=== PATIENT | male | born 1945 | race Hispanic/Latino ===

== ENCOUNTER 2018-05-17 14:09 | Inpatient (IN) | payer OTHER ==
[2018-05-17 17:52] VITALS: BMI 35.5
[2018-05-17] MEDS ORDERED: Tuberculin 5 Units/0.1 ml Inj ID ONE (17:56)
[2018-05-17] MEDS ORDERED: Alum-Mag Hydrox-Simethicone Susp (30 mL) PO PRN (18:11)
[2018-05-17 19:39] VITALS: RESP 20
[2018-05-17] MEDS: Oxycodone/Acetaminophen 5/325 mg Tab PO PRN (21:17)
[2018-05-17] MEDS: Insulin Regular 100 units/ml SC SCH (21:18)
[2018-05-18] MEDS: Oxycodone/Acetaminophen 5/325 mg Tab PO PRN ×4 (05:56→20:54)
[2018-05-18 06:02] LABS: HEMOGLOBIN 12.4 g/dL (12.0-18.0); MEAN CELL VOLUME 90.2 fl (80.0-94.0); MEAN CORPUSCULAR HEMOGLOBIN 30.4 pg (27.0-31.0); MEAN CORPUSCULAR HGB CONC 33.7 g/dL (33.0-37.0); RBC 4.08 Mil/uL (4.40-5.90); RED CELL DISTRIBUTION WIDTH 14.2 % (11.5-14.5); WHITE BLOOD COUNT 7.9 K/uL (4.8-10.8)
[2018-05-18 06:22] LABS: ALBUMIN 3.4 g/dL (3.5-5.0); ALT/SGPT 20 U/L (21-72); AST/SGOT 24 U/L (17-59); BLOOD UREA NITROGEN 17 mg/dl (9-20); CALCIUM 8.9 mg/dL (8.4-10.2); GFR AFRICAN-AMERICAN > 60; GFR NON-AFRICAN AMERICAN 50
[2018-05-18] MEDS: Insulin Regular 100 units/ml SC SCH ×4 (07:58→21:36)
[2018-05-18] MEDS: Pantoprazole 40 mg EC Tab PO SCH (08:37)
[2018-05-18] MEDS ORDERED: Povidone Iodine Topical 10% Sol TOP ONE (10:52)
[2018-05-18] MEDS: Povidone Iodine Topical 10% Sol TOP SCH (12:14)
--- NOTE | 2018-05-18 14:05 | CP.PCM.CON ---
History of Present Illness - History of Present Illness History of Present Illness: Dr Tinajero PMR consultation on James Hua, born 1945, who has been admitted to [facility] TCU following a right laproscopic nephro-uretectomy post op stable. + right ureteral tumor with hydronephrosis pre-op doing better and ambulating without AD in therapies denies significant pain at this point Review of Systems - Constitutional Constitutional: absent: Chills - EENT Eyes: absent: Change in Vision Ears: absent: Ear Pain Nose/Mouth/Throat: absent: Nasal Congestion - Cardiovascular Cardiovascular: absent: Chest Pain - Respiratory Respiratory: absent: Dyspnea - Gastrointestinal Gastrointestinal: absent: Belching Past Patient History - Past Medical History & Family History Past Medical History?: Yes - Past Social History Smoking Status: Former Smoker - CARDIAC Hx Cardiac Disorders: Yes Hx Hypercholesterolemia: Yes Hx Hypertension: Yes - ENDOCRINE/METABOLIC Hx Diabetes Mellitus Type 2: Yes - HEMATOLOGICAL/ONCOLOGICAL Hx Blood Disorders: Yes Hx Cancer: Yes (bladder x 1o years) Hx Chemotherapy: Yes (into bladder x 10 years) - MUSCULOSKELETAL/RHEUMATOLOGICAL Hx Musculoskeletal Disorders: Yes Hx Falls: No Hx Osteoarthritis: Yes - GENITOURINARY/GYNECOLOGICAL Hx Genitourinary Disorders: Yes Hx Bladder Cancer: Yes - PSYCHIATRIC Hx Substance Use: No - SURGICAL HISTORY Hx Surgeries: Yes Other/Comment: several cystoscopies bx and fulg of bladder - ANESTHESIA Hx Anesthesia: Yes Hx Anesthesia Reactions: No Hx Malignant Hyperthermia: No Meds Allergies/Adverse Reactions: Allergies Allergy/AdvReac Type Severity Reaction Status Date / Time BCG (Bacillus Allergy Intermediate SWELLING Verified 05/17/18 14:20 Calmette-Monae) vacc - Medications Medications: Current Medications Al Hydrox/Mg Hydrox/Simethicone (Maalox Plus 30 Ml) 30 ml PO Q8H PRN PRN Reason: Indigestion / Heartburn Docusate Sodium (Colace) 100 mg PO TID [facility] Last Admin: 05/18/18 12:13 Dose: 100 mg Heparin Sodium (Porcine) (Heparin) 5,000 units SC Q12 MATIAS PRN Reason: Protocol Last Admin: 05/18/18 09:34 Dose: 5,000 units Insulin Human Regular (Humulin R) 0 units SC ACHS [facility]IAS PRN Reason: Protocol Last Admin: 05/18/18 11:24 Dose: Not Given Lactulose (Enulose) 20 gm PO HS PRN PRN Reason: Constipation Oxycodone/Acetaminophen (Percocet 5/325 Mg Tab) 1 tab PO Q4H PRN PRN Reason: Pain, severe (8-10) Stop: 05/20/18 18:12 Last Admin: 05/18/18 12:49 Dose: 1 tab Pantoprazole Sodium (Protonix Ec Tab) 40 mg PO DAILY [facility] Last Admin: 05/18/18 08:37 Dose: 40 mg Povidone Iodine (Betadine 10% Topical Soln) 1 ml TOP DAILY [facility] Last Admin: 05/18/18 12:14 Dose: 1 ml Results - Vital Signs Recent Vital Signs: Last Vital Signs Temp 97.7 F 05/18/18 08:33 Pulse 78 05/18/18 09:54 Resp 20 05/18/18 08:33 BP 122/60 05/18/18 08:33 Pulse Ox 94 L 05/18/18 09:54 - Labs Result Diagrams: 05/18/18 05:30 05/18/18 05:30 Labs: Laboratory Results - last 24 hr 05/17/18 05/18/18 05/18/18 21:00 05:27 05:30 WBC 7.9 RBC 4.08 L Hgb 12.4 Hct 36.8 MCV 90.2 MCH 30.4 MCHC 33.7 RDW 14.2 Plt Count 169 APTT Sodium Potassium Chloride Carbon Dioxide Anion Gap BUN Creatinine Est GFR ( Amer) Est GFR (Non-Af Amer) POC Glucose (mg/dL) 135 H 130 H Random Glucose Calcium Total Bilirubin AST ALT Alkaline Phosphatase Total Protein Albumin Globulin Albumin/Globulin Ratio 05/18/18 05/18/18 05/18/18 05:30 09:55 10:43 WBC RBC Hgb Hct MCV MCH MCHC RDW Plt Count APTT 29.2 Sodium 138 Potassium 4.5 Chloride 102 Carbon Dioxide 29 Anion Gap 12 BUN 17 Creatinine 1.4 Est GFR ( Amer) > 60 Est GFR (Non-Af Amer) 50 POC Glucose (mg/dL) 122 H Random Glucose 129 H Calcium 8.9 Total Bilirubin 0.8 AST 24 ALT 20 L Alkaline Phosphatase 63 Total Protein 6.6 Albumin 3.4 L Globulin 3.2 Albumin/Globulin Ratio 1.0 Assessment & Plan - Assessment and Plan (Free Text) Assessment: PT/OT to continue to help increase functional independence Pain: controlled Vascular: no evidence of DVT GI: + constipation, will add bowel regimen Patient continues to be an excellent TCU rehabilitation candidate and will have continued focused PT, OT and recreational therapy to help facilitate a safe and appropriate d/c plan
--- NOTE | 2018-05-18 20:19 | CP.PCM.HP ---
History of Present Illness - History of Present Illness History of Present Illness: pt is seen and examined, H&P is dictated for wil rivera #[id number] Present on Admission - Present on Admission Any Indicators Present on Admission: No History of DVT/PE: No History of Uncontrolled Diabetes: No Urinary Catheter: Yes Decubitus Ulcer Present: No Past Patient History - Past Medical History & Family History Past Medical History?: Yes - Past Social History Smoking Status: Former Smoker - CARDIAC Hx Cardiac Disorders: Yes Hx Hypercholesterolemia: Yes Hx Hypertension: Yes - ENDOCRINE/METABOLIC Hx Diabetes Mellitus Type 2: Yes - HEMATOLOGICAL/ONCOLOGICAL Hx Blood Disorders: Yes Hx Cancer: Yes (bladder x 1o years) Hx Chemotherapy: Yes (into bladder x 10 years) - MUSCULOSKELETAL/RHEUMATOLOGICAL Hx Musculoskeletal Disorders: Yes Hx Falls: No Hx Osteoarthritis: Yes - GENITOURINARY/GYNECOLOGICAL Hx Genitourinary Disorders: Yes Hx Bladder Cancer: Yes - PSYCHIATRIC Hx Substance Use: No - SURGICAL HISTORY Hx Surgeries: Yes Other/Comment: several cystoscopies bx and fulg of bladder - ANESTHESIA Hx Anesthesia: Yes Hx Anesthesia Reactions: No Hx Malignant Hyperthermia: No Meds Allergies/Adverse Reactions: Allergies Allergy/AdvReac Type Severity Reaction Status Date / Time BCG (Bacillus Allergy Intermediate SWELLING Verified 05/17/18 14:20 Calmette-Monae) vacc Results - Vital Signs Recent Vital Signs: Last Vital Signs Temp 98.2 F 05/18/18 19:41 Pulse 72 05/18/18 19:41 Resp 20 05/18/18 19:41 BP 111/62 05/18/18 19:41 Pulse Ox 95 05/18/18 19:41 - Labs Result Diagrams: 05/18/18 05:30 05/18/18 05:30 Labs: Laboratory Results - last 24 hr 05/17/18 05/18/18 05/18/18 21:00 05:27 05:30 WBC 7.9 RBC 4.08 L Hgb 12.4 Hct 36.8 MCV 90.2 MCH 30.4 MCHC 33.7 RDW 14.2 Plt Count 169 APTT Sodium Potassium Chloride Carbon Dioxide Anion Gap BUN Creatinine Est GFR ( Amer) Est GFR (Non-Af Amer) POC Glucose (mg/dL) 135 H 130 H Random Glucose Calcium Total Bilirubin AST ALT Alkaline Phosphatase Total Protein Albumin Globulin Albumin/Globulin Ratio 05/18/18 05/18/1805/18/18 05:30 09:55 10:43 WBC RBC Hgb Hct MCV MCH MCHC RDW Plt Count APTT 29.2 Sodium 138 Potassium 4.5 Chloride 102 Carbon Dioxide 29 Anion Gap 12 BUN 17 Creatinine 1.4 Est GFR ( Amer) > 60 Est GFR (Non-Af Amer) 50 POC Glucose (mg/dL) 122 H Random Glucose 129 H Calcium 8.9 Total Bilirubin 0.8 AST 24 ALT 20 L Alkaline Phosphatase 63 Total Protein 6.6 Albumin 3.4 L Globulin 3.2 Albumin/Globulin Ratio 1.0 05/18/18 16:19 WBC RBC Hgb Hct MCV MCH MCHC RDW Plt Count APTT Sodium Potassium Chloride Carbon Dioxide Anion Gap BUN Creatinine Est GFR ( Amer) Est GFR (Non-Af Amer) POC Glucose (mg/dL) 127 H Random Glucose Calcium Total Bilirubin AST ALT Alkaline Phosphatase Total Protein Albumin Globulin Albumin/Globulin Ratio
[2018-05-18] MEDS: Docusate-Senna 50 mg-8.6 mg Tab PO SCH (20:59)
[2018-05-19] MEDS: Oxycodone/Acetaminophen 5/325 mg Tab PO PRN ×5 (02:54→22:03)
[2018-05-19] MEDS: Insulin Regular 100 units/ml SC SCH ×4 (06:35→22:00)
[2018-05-19] MEDS: Povidone Iodine Topical 10% Sol TOP SCH (08:09)
[2018-05-19] MEDS: Pantoprazole 40 mg EC Tab PO SCH (08:10)
--- NOTE | 2018-05-19 09:23 | HP ---
LOCATION: The patient is located in room 705, bed 1. HISTORY OF PRESENT ILLNESS: The patient is seen and examined for Dr. Cheri Watson. Mr. Hua is a 72-year-old elderly male with the past medical history significant for longstanding hypertension, diabetes, hyperlipidemia, bladder CA, status post surgery in 2003, has been in remission until 2017 when he has recurrence of bladder tumor and cauterized twice but on recent cystoscopy found to have lesion in the right ureter, and the patient is scheduled for nephroureterectomy on 05/14/2018. The patient underwent robotic laparoscopic right nephroureterectomy, and the patient was subsequently transferred from [facility] to Transitional Care Unit for rehab. The patient is resting comfortably. The patient is out of bed to chair today. He still complains of mild abdominal discomfort when he moves and also complains of constipation. Denies any chest pain or palpitation. Denies any fever or cough. Denies any nausea, vomiting or diarrhea. The patient does complain mild swelling in both lower extremities. Not in distress. PAST MEDICAL HISTORY: Significant for hyperlipidemia, hypertension, diabetes, bladder CA. PAST SURGICAL HISTORY: Status post bladder tumor resection in 2003 and status post treatment with BCG and multiple cystoscopies. FAMILY HISTORY: Nothing contributory to the present illness. SOCIAL HISTORY: He denies any alcohol, denies any smoking at present time. He was a former smoker, quit more than 20 years ago. Denies drug abuse. PERSONAL HISTORY: He is single. Having two children. ALLERGIES: HE IS ALLERGIC TO BCG. MEDICATIONS: His current medications include as follows. Betadine topical, Colace 100 mg p.o. t.i.d., lactulose 20 gm p.o. at bedtime, Fleet enema p.r.n., subcutaneous heparin 5000 every 12 hours, Humulin R for sliding scale, Maalox 30 mL p.o. every 8 hours, Percocet 1 tablet p.o. every 4 hours, Protonix 40 mg p.o. daily, Senokot mg and 8.6 mg one tablet p.o. at bedtime. REVIEW OF SYSTEMS: Significant for mild abdominal discomfort, constipation and edema. All other review of systems are reviewed and negative. PHYSICAL EXAMINATION: GENERAL: Mr. Hua is a 72-year-old elderly male, well built, well nourished, not in distress. VITAL SIGNS: His vital signs on the physical examination as follows; blood pressure 111/62, pulse 72, respirations 20, temperature 98.2, saturation 95%. Height 6 feet 5 inches. Weight is 300 pounds. HEENT: Pupils are normal and reactive to light and accommodation. Conjunctivae are pink. Sclerae anicteric. Tongue is moist. Trachea is midline. LUNGS: Symmetric on both sides. Bilateral breath sounds present. Clear to auscultation. CVS: [place] at the fifth intercostal space midclavicular line. S1 and S2 audible. No murmur, no gallop. ABDOMEN: Normal in appearance. The patient has a dressing present. Soft, tympanic. No guarding. No rigidity. No hepatosplenomegaly. Bowel sounds are normal. CENTRAL NERVOUS SYSTEM: The patient is alert, awake, oriented x3. Nonfocal neurologic examination. Cranial nerves II through XII are intact. Sensory and motor system is grossly within normal limits. EXTREMITIES: No cyanosis. No clubbing. The patient has 1+ edema in both lower extremities. LABORATORY DATA: His laboratory data include as follows. As of 05/18/2018, WBC 7.9, hemoglobin 12.4, hematocrit 36.8, platelets 169. Sodium 138, potassium 4.5, chloride 102, CO2 of 29, BUN 17, creatinine 1.4, glucose 129, calcium 8.9, total bilirubin 0.8, AST 24, ALT 20, alkaline phosphatase 63, total protein 6.6, albumin is 3.4. IMPRESSION AND PLAN: In summary, Mr. Hua is a 72-year-old elderly male with a history of hypertension, diabetes, hyperlipidemia, bladder tumor, bladder cancer, status post bladder tumor resection and BCG injection in 2004 with allergic reaction to BCG, multiple cystoscopies, was recently found to have ureteric lesion on the right side and is scheduled initially for the nephroureterectomy on 05/14/2018 and underwent robotic laparoscopic right nephroureterectomy, and subsequently transferred to rehab for transitional care unit for physical therapy. 1. Hypertension. Blood pressure is stable. Continue use of current medication, Colace, lactulose. 2. Status post right robotic laparoscopic nephroureterectomy. Continue analgesics as needed. 3. Constipation, most likely secondary to pain medication. Continue Colace and lactulose. We will also give Senokot at bedtime. 4. Continue deep vein thrombotic prophylaxis and gastrointestinal prophylaxis. Subcutaneous heparin and Protonix. Continue physical therapy as recommended by the rehab. The patient is seen and examined, and dictated for Dr. Cheri Watson. Salo Watson MD
--- NOTE | 2018-05-19 14:34 | CP.PCM.PN ---
Subjective - Date & Time of Evaluation Date of Evaluation: 05/19/18 Time of Evaluation: 14:33 - Subjective Subjective: pt is seen and examined, follow up consult is dictated #[id number] Objective - Vital Signs/Intake and Output Vital Signs (last 24 hours): Temp Pulse Resp BP Pulse Ox 97.3 F L 71 20 136/65 95 05/19/18 08:12 05/19/18 08:12 05/19/18 08:12 05/19/18 08:12 05/19/18 08:12 - Medications Medications: Current Medications Al Hydrox/Mg Hydrox/Simethicone (Maalox Plus 30 Ml) 30 ml PO Q8H PRN PRN Reason: Indigestion / Heartburn Docusate Sodium (Colace) 100 mg PO TID [facility] Last Admin: 05/19/18 12:09 Dose: 100 mg Heparin Sodium (Porcine) (Heparin) 5,000 units SC Q12 [facility]IAS PRN Reason: Protocol Last Admin: 05/19/18 08:10 Dose: 5,000 units Insulin Human Regular (Humulin R) 0 units SC ACHS MATIAS PRN Reason: Protocol Last Admin: 05/19/18 12:01 Dose: Not Given Lactulose (Enulose) 20 gm PO HS PRN PRN Reason: Constipation Oxycodone/Acetaminophen (Percocet 5/325 Mg Tab) 1 tab PO Q4H PRN PRN Reason: Pain, severe (8-10) Stop: 05/20/18 18:12 Last Admin: 05/19/18 13:47 Dose: 1 tab Pantoprazole Sodium (Protonix Ec Tab) 40 mg PO DAILY [facility] Last Admin: 05/19/18 08:10 Dose: 40 mg Povidone Iodine (Betadine 10% Topical Soln) 1 ml TOP DAILY [facility] Last Admin: 05/19/18 08:09 Dose: 1 ml Senna/Docusate Sodium (Senokot S 50 Mg-8.6 Mg) 1 tab PO HS [facility] Last Admin: 05/18/18 20:59 Dose: 1 tab Sodium Phosphate (Fleet Enema) 135 ml ND ONCE PRN PRN Reason: Constipation - Labs Labs: 05/18/18 05:30 05/18/18 05:30 APTT 29.2 Seconds (25.6-37.1) 05/18/18 09:55
[2018-05-19] MEDS: Docusate-Senna 50 mg-8.6 mg Tab PO SCH (21:02)
[2018-05-20] MEDS: Oxycodone/Acetaminophen 5/325 mg Tab PO PRN ×4 (05:53→20:45)
[2018-05-20] MEDS: Insulin Regular 100 units/ml SC SCH ×4 (06:49→21:50)
[2018-05-20] MEDS: Povidone Iodine Topical 10% Sol TOP SCH (08:20)
[2018-05-20] MEDS: Pantoprazole 40 mg EC Tab PO SCH (08:22)
[2018-05-20] MEDS: Docusate-Senna 50 mg-8.6 mg Tab PO SCH (21:50)
[2018-05-21] MEDS: Insulin Regular 100 units/ml SC SCH ×4 (06:33→22:05)
[2018-05-21] MEDS: Oxycodone/Acetaminophen 5/325 mg Tab PO PRN ×4 (07:05→21:12)
[2018-05-21] MEDS: Povidone Iodine Topical 10% Sol TOP SCH (09:05)
[2018-05-21] MEDS: Pantoprazole 40 mg EC Tab PO SCH (09:12)
--- NOTE | 2018-05-21 10:35 | PN ---
DATE: 05/19/2018 LOCATION: The patient is located in transitional care unit, room 705, bed 1. The patient is seen and examined by Salo Watson MD, covering Cheri Watson MD. HISTORY OF PRESENT ILLNESS: Mr. Hua is a 72-year-old elderly, very pleasant, male with a history of hypertension and bladder tumor, status post bladder tumor resection, also BCG treatment about 13-14 years ago, multiple cystoscopies, and recently found to have a ureteric mass on the right side. Subsequently, the patient was admitted to [facility] electively for robotic laparoscopic ureteronephrectomy. The patient underwent surgery last week and now the patient was transferred to a transitional care unit for the rehab. The patient still complains of mild abdominal discomfort, pain, and constipation, able to pass gas. No chest pain. No palpitation. No fever. No cough. No abdominal pain. No nausea, vomiting, or diarrhea. PHYSICAL EXAMINATION VITAL SIGNS: As follows; blood pressure 114/67, pulse 78, respirations 20, temperature 97.9, saturation 96%. Height 6 feet 5 inches, weight is 296 pounds. GENERAL: Mr. Mancuso is a 72-year-old elderly male, well-built, well-nourished, not in distress. HEENT: Pupils are normal, reactive to light and accommodation. Conjunctivae pink. Sclerae anicteric. Tongue is moist and trachea is midline. LUNGS: Symmetric on both sides. Bilateral breath sounds present. Clear to auscultation. CVS: [place] at the fifth intercostal space, midclavicular line. S1, S2, audible. No murmur or gallop. ABDOMEN: Normal in appearance. Soft, tympanic. The patient has abdominal binder and also dressing present. Bowel sounds present. No guarding or rigidity. ANALYTICAL STATISTICIAN: The patient is alert, awake, oriented x3. Nonfocal neuro examination. Cranial nerves II through XII grossly intact. Sensory and motor system is within normal limits. EXTREMITIES: No cyanosis, no clubbing or edema. MEDICATIONS: His current medications include as follows; Betadine topical, Colace 100 mg p.o. t.i.d., lactulose 20 gm p.o. at bedtime, Fleet Enema p.r.n., subcutaneous heparin 5000 every 12 hours, Humulin R for sliding scale, Maalox 30 mL p.o. every 8 hours, Percocet 1 tablet every 4 hours p.r.n., Protonix 40 mg p.o. daily, Senokot 1 tablet p.o. at bedtime. LABORATORY DATA: His laboratory data include as of 05/18/2018; WBC 7.9, hemoglobin 12.4, hematocrit is 36.8, platelets 169. Sodium 138, potassium 4.5, chloride 102, CO2 29, BUN 17, creatinine 1.4, glucose 129. Accu-Cheks 127, 132, 137. IMPRESSION: In summary, Mr. Mancuso is a 72-year-old elderly male with a history of hypertension; type 2 diabetes; bladder tumor, status post resection about 13-14 years ago; status post BCG treatment. Subsequently, the patient developed allergic reaction and also multiple cystoscopies over a period of time and recently found to have a right ureteric mass and scheduled for a ureteronephrectomy, laparoscopic, last week, status post robotic ureteronephrectomy, now transferred to the transitional care unit. 1. Hypertension. Blood pressure is stable. Off antihypertensive medication at this time. 2. Type 2 diabetes. The patient is with decreased p.o. intake. The patient is not on any oral hypoglycemics at this time, we will continue to monitor Accu-Cheks. 3. Status post right ureteronephrectomy. We will continue as needed, continue lactulose, and continue Senokot and Colace as needed. The patient is seen and examined, and dictated for Dr. Cheri Watson. Discussed with the nurse in the rounds. The patient does not want any Fleet Enema at this time. He wants to watch. Salo Watson MD
--- NOTE | 2018-05-21 20:02 | CP.PCM.PN ---
Subjective - Date & Time of Evaluation Date of Evaluation: 05/21/18 Time of Evaluation: 20:02 - Subjective Subjective: pt is seen and examined, follow up consult is dictated #[id number] Objective - Vital Signs/Intake and Output Vital Signs (last 24 hours): Temp Pulse Resp BP Pulse Ox 97.9 F 69 20 124/73 97 05/21/18 15:52 05/21/18 15:52 05/21/18 15:52 05/21/18 15:52 05/21/18 15:52 Intake and Output: 05/21/18 05/22/18 18:59 06:59 Intake Total 1050 Output Total 2450 Balance -1400 - Medications Medications: Current Medications Al Hydrox/Mg Hydrox/Simethicone (Maalox Plus 30 Ml) 30 ml PO Q8H PRN PRN Reason: Indigestion / Heartburn Docusate Sodium (Colace) 100 mg PO TID [facility] Last Admin: 05/21/18 16:59 Dose: 100 mg Heparin Sodium (Porcine) (Heparin) 5,000 units SC Q12 [facility] PRN Reason: Protocol Last Admin: 05/21/18 09:11 Dose: 5,000 units Insulin Human Regular (Humulin R) 0 units SC ACHS [facility]IAS PRN Reason: Protocol Last Admin: 05/21/18 17:03 Dose: Not Given Lactulose (Enulose) 20 gm PO HS PRN PRN Reason: Constipation Last Admin: 05/19/18 21:02 Dose: 20 gm Oxycodone/Acetaminophen (Percocet 5/325 Mg Tab) 1 tab PO Q4 PRN PRN Reason: for pain level 8-10 Stop: 05/23/18 20:34 Last Admin: 05/21/18 16:59 Dose: 1 tab Pantoprazole Sodium (Protonix Ec Tab) 40 mg PO DAILY [facility] Last Admin: 05/21/18 09:12 Dose: 40 mg Povidone Iodine (Betadine 10% Topical Soln) 1 ml TOP DAILY [facility] Last Admin: 05/21/18 09:05 Dose: Not Given Senna/Docusate Sodium (Senokot S 50 Mg-8.6 Mg) 1 tab PO HS [facility] Last Admin: 05/20/18 21:50 Dose: 1 tab Sodium Phosphate (Fleet Enema) 135 ml IA ONCE PRN PRN Reason: Constipation Last Admin: 05/20/18 13:09 Dose: 135 ml - Labs Labs: 05/18/18 05:30 05/18/18 05:30 APTT 29.2 Seconds (25.6-37.1) 05/18/18 09:55
[2018-05-21] MEDS: Docusate-Senna 50 mg-8.6 mg Tab PO SCH (21:12)
--- NOTE | 2018-05-22 05:17 | PN ---
DATE: 05/21/2018 LOCATION: The patient is located in room 705, bed 1. : Cheri Watson MD SUBJECTIVE: The patient is seen and examined. Mr. Hua is a 72 years old elderly male with a past medical history of significant longstanding hypertension, diabetes, bladder CA, status post bladder tumor resection and BCG treatment about 12-13 years ago, multiple cystoscopies for surveillance, and recently found to have a right ureteric mass. Subsequently, the patient was scheduled for a laparoscopic robotic ureteronephrectomy in [facility], status post surgery on 05/14/2018, laparoscopic robotic ureteronephrectomy on the right side, and subsequently the patient was discharged to transitional care unit for further monitoring and rehab. The patient is now feeling much better, not in acute distress. The patient has a Trejo catheter with a good urine output. Denies any abdominal pain. Denies any nausea, vomiting or diarrhea. Denies any headache or dizziness. The patient does complain of slight swelling of the legs. The patient claims he moved his bowels yesterday. PHYSICAL EXAMINATION: VITAL SIGNS: As follows: Blood pressure 124/73, pulse 69, respirations 20, temperature 97.9, saturation 97%. His height is 6 feet 5 inches and weight is 296 pounds. GENERAL: Mr. Hua is a 72-year-old elderly male, well built, well nourished, not in distress. HEENT: Pupils are normal and reactive to light and accommodation. Conjunctivae are pink. Sclerae are anicteric. Tongue is moist. Trachea is midline. LUNGS: Symmetric on both sides. Bilateral breath sounds present. Clear to auscultation. CVS: [place] at the fifth intercostal space, midclavicular line. S1, S2 audible. No murmur or gallop. ABDOMEN: The patient has abdominal binding, binder present and also dressing present. Abdomen is soft, tympanic. No guarding. No rigidity. No hepatosplenomegaly. HEALTH CARE RECRUITER: The patient is alert, awake, oriented x3. Nonfocal neuro examination. Cranial nerves II-XII grossly intact. Sensory and motor system is within normal limits. EXTREMITIES: No cyanosis, no clubbing. Trace edema in both lower extremities. CURRENT MEDICATIONS: Include as follows: Colace 100 mg p.o. t.i.d., lactulose 20 gm p.o. at bedtime, Fleet Enema p.r.n., subcutaneous heparin 5000 every 12 hours, Humulin R per sliding scale, Maalox 30 mL p.o. every 8 hours p.r.n., Percocet one tablet p.o. every 4 hours p.r.n., Protonix 40 mg p.o. daily, and Senokot one tablet p.o. at bedtime. LABORATORY DATA: No new labs are available. Accu-checks 121, 157 and 100. ASSESSMENT AND PLAN: In summary, Mr. Hua is a 72-year-old elderly male with hypertension; diabetes; bladder cancer, status post bladder tumor resection about 12-13 years ago; multiple cystoscopies; and recently diagnosed of right ureteric tumor, status post ureteronephrectomy on 05/14/2018 with a Trejo catheter who was transferred to the transitional care unit with occasional constipation. 1. Hypertension. Blood pressure is stable. Continue to hold his blood pressure medication at this time. 2. Type 2 diabetes. Sugars are under control. Continue to monitor Accu-Cheks. 3. Status post robotic right ureteronephrectomy. Case discussed with Dr. Glass and agreed to discontinue the Trejo catheter tomorrow and continue monitor urine output after removal of the Trejo catheter. If the patient is able to void without difficulty, we will consider to discharge the patient to home and follow with Dr. Glass as an outpatient and follow with Dr. Cheri Watson as an outpatient in one to two weeks. Also, we will check CBC, BMP in a.m. The patient is seen and examined by Dr. Cheri Watson. Salo Watson MD
[2018-05-22] MEDS: Oxycodone/Acetaminophen 5/325 mg Tab PO PRN ×3 (06:19→21:25)
[2018-05-22] MEDS: Insulin Regular 100 units/ml SC SCH ×4 (06:39→21:53)
[2018-05-22] MEDS: Pantoprazole 40 mg EC Tab PO SCH (08:08)
[2018-05-22] MEDS: Povidone Iodine Topical 10% Sol TOP SCH ×2 (08:08→16:48)
[2018-05-22 08:49] LABS: BASO % 0.6 % (0.0-2.0); EOS # 0.8 K/uL (0.0-0.7); EOS % 9.8 % (0.0-4.0); HEMOGLOBIN 12.8 g/dL (12.0-18.0); LYMPH # 2.3 K/uL (1.0-4.3); LYMPH % 28.2 % (20.0-40.0); MEAN CELL VOLUME 88.5 fl (80.0-94.0); MEAN PLATELET VOLUME 8.5 fl (7.2-11.7); MONO # 0.9 K/uL (0.0-0.8); MONO % 11.2 % (0.0-10.0); NEUT % 50.2 % (50.0-75.0); RBC 4.27 Mil/uL (4.40-5.90); RED CELL DISTRIBUTION WIDTH 14.1 % (11.5-14.5)
[2018-05-22 09:09] LABS: ALBUMIN 3.4 g/dL (3.5-5.0); ALT/SGPT 26 U/L (21-72); AST/SGOT 30 U/L (17-59); BLOOD UREA NITROGEN 17 mg/dl (9-20); CALCIUM 9.3 mg/dL (8.4-10.2); GFR AFRICAN-AMERICAN > 60; GFR NON-AFRICAN AMERICAN 54
--- NOTE | 2018-05-22 10:04 | CP.PCM.PN ---
Subjective - Date & Time of Evaluation Date of Evaluation: 05/22/18 Time of Evaluation: 10:03 - Subjective Subjective: pt is seen and examined, progress note is dictated #[id number] s/p d/c george cath c/w PT/OT Objective - Vital Signs/Intake and Output Vital Signs (last 24 hours): Temp Pulse Resp BP Pulse Ox 97.7 F 60 20 118/76 95 05/22/18 08:26 05/22/18 08:26 05/22/18 08:26 05/22/18 08:26 05/22/18 08:26 - Medications Medications: Current Medications Al Hydrox/Mg Hydrox/Simethicone (Maalox Plus 30 Ml) 30 ml PO Q8H PRN PRN Reason: Indigestion / Heartburn Docusate Sodium (Colace) 100 mg PO TID [facility] Last Admin: 05/22/18 08:08 Dose: 100 mg Heparin Sodium (Porcine) (Heparin) 5,000 units SC Q12 [facility] PRN Reason: Protocol Last Admin: 05/22/18 08:08 Dose: 5,000 units Insulin Human Regular (Humulin R) 0 units SC ACHS [facility] PRN Reason: Protocol Last Admin: 05/22/18 06:39 Dose: Not Given Lactulose (Enulose) 20 gm PO HS PRN PRN Reason: Constipation Last Admin: 05/19/18 21:02 Dose: 20 gm Oxycodone/Acetaminophen (Percocet 5/325 Mg Tab) 1 tab PO Q4 PRN PRN Reason: for pain level 8-10 Stop: 05/23/18 20:34 Last Admin: 05/22/18 06:19 Dose: 1 tab Pantoprazole Sodium (Protonix Ec Tab) 40 mg PO DAILY [facility] Last Admin: 05/22/18 08:08 Dose: 40 mg Povidone Iodine (Betadine 10% Topical Soln) 1 ml TOP DAILY [facility] Last Admin: 05/22/18 08:08 Dose: 1 ml Senna/Docusate Sodium (Senokot S 50 Mg-8.6 Mg) 1 tab PO HS [facility] Last Admin: 05/21/18 21:12 Dose: 1 tab Sodium Phosphate (Fleet Enema) 135 ml NV ONCE PRN PRN Reason: Constipation Last Admin: 05/20/18 13:09 Dose: 135 ml Tamsulosin HCl (Flomax) 0.4 mg PO DAILY [facility] - Labs Labs: 05/22/18 08:27 05/22/18 08:27 APTT 29.2 Seconds (25.6-37.1) 05/18/18 09:55
[2018-05-22] MEDS: Docusate-Senna 50 mg-8.6 mg Tab PO SCH (21:25)
[2018-05-23] MEDS: Insulin Regular 100 units/ml SC SCH ×4 (07:11→21:27)
[2018-05-23] MEDS: Oxycodone/Acetaminophen 5/325 mg Tab PO PRN ×4 (07:46→21:30)
[2018-05-23] MEDS: Pantoprazole 40 mg EC Tab PO SCH (08:25)
--- NOTE | 2018-05-23 08:28 | PN ---
DATE: 05/22/2018 FOLLOWUP RENAL CONSULTATION LOCATION: The patient is located in transitional care unit, room 705, bed 1. The patient is seen and examined. Progress note dictated for Dr. Cheri Watson. SUBJECTIVE: The patient is a 72-year-old elderly male with a past medical history significant for longstanding hypertension; diabetes; bladder cancer, status post transurethral resection of the bladder tumor and BCG treatment about 12 to 13 years ago and recurrent cystoscopies. The patient was found to have a recently right ureteral mass and subsequently scheduled for robotic ureteral nephrectomy on 05/14/2018 in [facility]. He is status post surgery on 05/14/2018 and subsequently the patient was transferred to transitional care unit for monitoring and also physical therapy. The patient is not in acute distress. Denies any headache or dizziness. Denies any chest pain or palpitations. Denies any fever or cough. No abdominal pain. No nausea, vomiting, or diarrhea. Claims he is moving bowels. Trejo catheter was discontinued this morning, and he is able to void after that removal of the Trejo catheter. CURRENT MEDICATIONS: Include: Betadine topical and Colace 100 mg p.o. t.i.d., lactulose 20 gm p.o. at bedtime, Fleet enema p.r.n., Flomax 0.4 mg daily, subcu heparin 5000 every 12 hours, Humulin R for sliding scale, Percocet one tablet p.o. every 4 hours p.r.n., Protonix 40 mg daily, and Senokot 1 tablet p.o. at bedtime. PHYSICAL EXAMINATION: VITAL SIGNS: Blood pressure this morning 118/76, pulse 60, respirations 20, temperature 97.7, saturations 95%. Height 6 feet 5 inches, weight is 296 pounds. GENERAL: The patient is a 72-year-old elderly male, well built, well nourished, not in distress. HEENT: Pupils are normal and reactive to light and accommodation. Conjunctivae are pink. Sclerae are anicteric. Tongue is moist. Trachea is midline. LUNGS: Symmetric on both sides. Bilateral breath sounds present. Clear to auscultation. CVS: [place] at the fifth intercostal space, midclavicular line. S1 and S2 audible. No murmur. No gallop. ABDOMEN: Normal in appearance. The patient has abdominal binder present and dressing present to the recent robotic surgery. Bowel sounds present. No guarding. No rigidity. [employer]: The patient is alert, awake, oriented x3 and nonfocal on examination. Cranial nerves II through XII are grossly intact. Sensory and motor system within normal limits. EXTREMITIES: No cyanosis, no clubbing, no edema. LABORATORY DATA: As of 05/22/2018: WBC 8, hemoglobin 12.8, hematocrit is 37.8, and platelets 260,000. Sodium 138, potassium 4.4, chloride 102, CO2 of 27, BUN 17, creatinine 1.3, glucose 109, calcium 9.3. Total bilirubin 0.4. AST 30, ALT 26, alkaline phosphatase 81, total protein 6.8, and albumin is 3.4. ASSESSMENT AND PLAN: In summary, the patient is a 72-year-old elderly male with hypertension; diabetes; bladder tumor, status post transurethral resection of the bladder tumor about 12 to 13 years ago; under treatment with Bacillus Calmette-Monae. Subsequently, the patient developed reaction with Bacillus Calmette-Monae with multiple cystoscopies over the period of time; recently found to have a right ureteral mass and scheduled for ureteral nephrectomy on the right side with robotic laparoscopic surgery on 05/14/2018, status post surgery and subsequently transferred to transitional care unit for physical therapy with a Trejo catheter in place. 1. Hypertension. Blood pressure is stable. 2. Diabetes. Sugars are under control. 3. Status post laparoscopic robotic ureteral nephrectomy. Continue physical therapy and occupational therapy, and also Trejo catheter was discontinued as per the Urology recommendation this morning. Continue monitoring urine output. We will discharge when cleared by the rehab to home and then he will follow up with Dr. Glass as an outpatient and also with Dr. Cheri Watson as an outpatient. The patient is seen and dictated for Dr. Cheri Watson. Salo Watson MD
[2018-05-23] MEDS: Povidone Iodine Topical 10% Sol TOP SCH (17:06)
[2018-05-23] MEDS: Docusate-Senna 50 mg-8.6 mg Tab PO SCH (21:26)
[2018-05-24] MEDS: Insulin Regular 100 units/ml SC SCH ×2 (06:47→13:07)
[2018-05-24] MEDS: Oxycodone/Acetaminophen 5/325 mg Tab PO PRN (07:08)
[2018-05-24] MEDS: Pantoprazole 40 mg EC Tab PO SCH (08:03)
[2018-05-24 08:27] VITALS: BP 119/74; PULSE 70; TEMP 97.9; O2SAT 95
--- NOTE | 2018-05-24 13:06 | CP.PCM.DIS ---
Provider - Provider Date of Admission: 05/17/18 17:52 Attending physician: El Watson MD Primary care physician: el watson Time Spent in preparation of Discharge (in minutes): 50 (follow up Dr. wil watson and dr. Beckwith in 1 week) Hospital Course - Lab Results Lab Results: Most Recent Lab Values WBC 8.0 K/uL (4.8-10.8) 05/22/18 08:27 RBC 4.27 Mil/uL (4.40-5.90) L 05/22/18 08:27 Hgb 12.8 g/dL (12.0-18.0) 05/22/18 08:27 Hct 37.8 % (35.0-51.0) 05/22/18 08:27 MCV 88.5 fl (80.0-94.0) 05/22/18 08: MCH 30.0 pg (27.0-31.0) 05/22/18 08: MCHC 34.0 g/dL (33.0-37.0) 05/22/18 08:27 RDW 14.1 % (11.5-14.5) 05/22/18 08:27 Plt Count 260 K/uL (130-400) 05/22/18 08:27 MPV 8.5 fl (7.2-11.7) 05/22/18 08:27 Neut % (Auto) 50.2 % (50.0-75.0) 05/22/18 08: Lymph % (Auto) 28.2 % (20.0-40.0) 05/22/18 08:27 [place] % (Auto) 11.2 % (0.0-10.0) H 05/22/18 08:27 Eos % (Auto) 9.8 % (0.0-4.0) H 05/22/18 08:27 Baso % (Auto) 0.6 % (0.0-2.0) 05/22/18 08:27 Neut # (Auto) 4.0 K/uL (1.8-7.0) 05/22/18 08:27 Lymph # (Auto) 2.3 K/uL (1.0-4.3) 05/22/18 08:27 [place] # (Auto) 0.9 K/uL (0.0-0.8) H 05/22/18 08:27 Eos # (Auto) 0.8 K/uL (0.0-0.7) H 05/22/18 08:27 Baso # (Auto) 0.0 K/uL (0.0-0.2) 05/22/18 08:27 APTT 29.2 Seconds (25.6-37.1) 05/18/18 09:55 Sodium 138 mmol/l (132-148) 05/22/18 08:27 Potassium 4.4 MMOL/L (3.6-5.0) 05/22/18 08:27 Chloride 102 mmol/L (98-107) 05/22/18 08:27 Carbon Dioxide 27 mmol/L (22-30) 05/22/18 08:27 Anion Gap 13 (10-20) 05/22/18 08:27 BUN 17 mg/dl (9-20) 05/22/18 08:27 Creatinine 1.3 mg/dl (0.8-1.5) 05/22/18 08:27 Est GFR ( Amer) > 60 05/22/18 08:27 Est GFR (Non-Af Amer) 54 05/22/18 08:27 POC Glucose (mg/dL) 129 mg/dL (65-110) H 05/24/18 05:18 Random Glucose 131 mg/dL (75-110) H 05/22/18 08:27 Calcium 9.3 mg/dL (8.4-10.2) 05/22/18 08:27 Total Bilirubin 0.5 mg/dl (0.2-1.3) 05/22/18 08:27 AST 30 U/L (17-59) 05/22/18 08:27 ALT 26 U/L (21-72) 05/22/18 08:27 Alkaline Phosphatase 81 U/L (38-126) 05/22/18 08:27 Total Protein 6.8 G/DL (6.3-8.2) 05/22/18 08:27 Albumin 3.4 g/dL (3.5-5.0) L 05/22/18 08:27 Globulin 3.4 gm/dL (2.2-3.9) 05/22/18 08:27 Albumin/Globulin Ratio 1.0 (1.0-2.1) 05/22/18 08:27 Discharge Plan - Follow Up Plan Condition: GOOD Disposition: HOME/ ROUTINE Instructions: Surgical Wound (DC) Referrals: El Watson MD [Family Provider] - Adeline Glass MD [Medical Doctor] -
--- NOTE | 2018-05-25 22:07 | DS ---
The patient was seen and examined for Dr. Cheri Watson. HISTORY OF PRESENT ILLNESS: Mr. Hua is a 72-year-old very pleasant elderly obese male with a history of longstanding hypertension, diabetes, CA of the bladder, status post bladder tumor resection and BCG injection about 12-14 years ago, status post multiple cystoscopies for surveillance and recently found to have a right ureteral mass and subsequently the patient was scheduled for the laparoscopic robotic ureteronephrectomy on 05/14/2018 in [facility]. The patient underwent successful laparoscopic ureteronephrectomy on the right side and subsequently transferred to transitional care unit on 05/17/2018 for the rehab with a Trejo catheter. The patient is feeling much better. Not in acute distress. Denies any headache or dizziness. Denies any chest pain or palpitation. Denies any fever or cough. No abdominal pain. No nausea, vomiting, or diarrhea. Trejo catheter was discontinued on Monday. The patient is able to void without any difficulty. PHYSICAL EXAMINATION: VITAL SIGNS: As follows: This morning, blood pressure 119/74, pulse 70, respirations 20, temperature 97.9, saturation 95%. Height 6 feet 5 inches, weight is 295 pounds. GENERAL: Mr. Hua is a 72-year-old elderly male, well built, well nourished, not in distress. HEENT: Pupils are normal and reactive to light and accommodation. Conjunctivae are pink. Sclerae are anicteric. Tongue is moist. Trachea is midline. LUNGS: Symmetric on both sides. Bilateral breath sounds present. Clear to auscultation. CVS: [place] at the fifth intercostal space, midclavicular line. S1 and S2 audible. No murmur. No gallop. ABDOMEN: Normal in appearance, soft, tympanic. No guarding. No rigidity. No hepatosplenomegaly. The patient has a dressing for the abdominal wound and also abdominal binder. [employer]: The patient is alert, awake, oriented x3 and nonfocal on examination. Cranial nerves II through XII are grossly intact. Sensory and motor system within normal limits. EXTREMITIES: No cyanosis, no clubbing, no edema. CURRENT MEDICATIONS: Include Protonix 40 mg daily and Flomax 0.4 mg daily. Glipizide 2.5 mg daily, Colace 100 mg p.o. t.i.d., Percocet 1 tablet 5/325 mg p.o. every 4 hours p.r.n., Glucophage 850 mg p.o. b.i.d, amlodipine 10 mg daily, metoprolol 50 mg p.o. daily, vitamin D2 2000 units p.o. daily. LABORATORY DATA: No new labs available. Accu-Chek 129 and 121. As of 05/22/2018, WBC 8, hemoglobin 12.8, hematocrit is 37.8, platelets 260,000. Sodium 138, potassium 4.4, chloride 102, CO2 of 27, BUN 17, creatinine 1.3, glucose 131, calcium 9.3, total bili 0.5, AST 30, ALT 26, alkaline phosphatase 81, total protein 6.8, albumin is 3.4. As of 03/05/2018, bladder biopsy of left bladder wall and right ureteral biopsy: The urinary bladder, left wall, fragment of the urothelium, and underlying stroma with mild chronic inflammation and reactive changes. Ureter right biopsy: Fragments of papillary high-grade urothelial carcinoma, noninvasive, associated with necrosis. No muscularis propria identified. Surgical pathology report as of 05/14/2018: Right kidney and ureter nephroureterectomy; invasive papillary urothelial carcinoma, high grade; moderate chronic interstitial inflammation of the renal parenchyma and glomerulosclerosis. ASSESSMENT AND PLAN: In summary, Mr. Hua is a 72-year-old elderly obese male with a history of hypertension; type 2 diabetes; bladder tumor; bladder cancer, status post resection many years ago with multiple cystoscopies for surveillance and recently found to have a ureteral mass, right side, and found to have transitional carcinoma, high grade, and the patient was scheduled for the laparoscopic ureteronephrectomy on 05/14/2018. Status post surgery and subsequently transferred to transitional care unit for the rehab with Trejo catheter. Trejo catheter was discontinued on 05/22/2018. The patient is able to void after that. 1. Hypertension. Blood pressure is under control. Not on any medication at this time. The patient will restart his medication once he is discharged home after seeing his primary medical doctor, Dr. Cheri Watson, in one week. 2. Type 2 diabetes. Continue to monitor Accu-Chek in house and follow up with primary medical doctor, Dr. Cheri Watson. 3. Status post robotic laparoscopic right ureteronephrectomy on 05/14/2018 consistent with invasive papillary urothelial carcinoma, high grade. Continue to follow up with Dr. Glass and continue pain medication, Percocet 1 tablet every 6 hours p.r.n. for pain, prescription given for 30 tablets and also continue Colace 100 mg p.o. t.i.d. and also Flomax 0.4 mg p.o. daily and continue all his home medications. Follow up with primary medical doctor and Dr. Glass in one week. The patient is seen and examined, dictated for Dr. Cheri Watson. Salo Watson MD
== END 2018-05-24 12:50 | disposition home or self-care (01) | DRG 950 ==
LOC: H.TCU 17:52
PROVIDERS: ADMIT Internal Medicine; ATTEND Internal Medicine
PROC: F08Z1FZ Dressing Techniques Treatment using Assistive, Adaptive, Supportive or Protective Equipment (ICD-10-PCS; principal; 2018-05-17)
PROC: F07Z9FZ Gait Training/Functional Ambulation Treatment using Assistive, Adaptive, Supportive or Protective Equipment (ICD-10-PCS; 2018-05-17)
PROC: F07 Physical Rehabilitation and Diagnostic Audiology, Rehabilitation, Motor Treatment (ICD-10-PCS; 2018-05-17)
DX: Z48.816 Encounter for surgical aftercare following surgery on the genitourinary system (principal); I10 Essential (primary) hypertension; E78.5 Hyperlipidemia, unspecified; E11.9 Type 2 diabetes mellitus without complications; Z85.51 Personal history of malignant neoplasm of bladder; Z87.891 Personal history of nicotine dependence; K59.00 Constipation, unspecified; Z88.7 Allergy status to serum and vaccine; E78.00 Pure hypercholesterolemia, unspecified